=== PATIENT | male | born 1950 | race Asian ===

== ENCOUNTER 2020-01-15 08:49 | Observation (INO) | payer MEDICARE, OTHER ==
[~2020-01-15] VITALS: Ht 177.8 cm; Wt 75.7 kg
--- NOTE | 2020-01-15 09:02 | NUR ---
PT CAME IN [place] "LEFT SIDE WEAKNESS. THATS STARTED WHEN I WOKE UP. ALSO I FEEL DIZZY AND CONFUSED". LAST KNOW WELL TIME WAS LAST NIGHT BEFORE BEDTIME. PT DENIES STROKE HISTORY. EKG COMPELTE. 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
[2020-01-15] MEDS ORDERED: SODIUM CHLORIDE FLUSH 10ML SYR IVF ONE (09:30)
[2020-01-15] MEDS ORDERED: OMNIPAQUE 350 MG/ML, 75ML BOTTLE ONE (09:44)
--- NOTE | 2020-01-15 09:54 | NUR ---
PT RESTING IN [facility]. URINAL PROVIDED.
[2020-01-15 10:01] LABS: BASOPHILS # (AUTO) 0.02 x10^3/uL (0-0.1); BASOPHILS % (AUTO) 0 % (0-1); EOSINOPHILS # (AUTO) 0.03 x10^3/uL (0-0.4); EOSINOPHILS % (AUTO) 1 % (1-7); LYMPHOCYTES # (AUTO) 0.88 x10^3/uL (1-3.4); LYMPHOCYTES % (AUTO) 18 % (22-44); MD NO; MEAN CORPUSCULAR HEMOGLOBIN 32.1 pg (27.5-34.5); MEAN CORPUSCULAR HGB CONC 33.4 g/dL (33.2-36.2); MEAN PLATELET VOLUME 6.3 fL (7.4-10.4); MONOCYTES # (AUTO) 0.52 x10^3/uL (0.2-0.8); MONOCYTES % (AUTO) 11 % (2-9); NEUTROPHILS # (AUTO) 3.52 x10^3/uL (1.8-6.8); NEUTROPHILS % (AUTO) 71 % (42-75); PLATELET COUNT 220 x10^3/uL (130-400); RED BLOOD COUNT 4.85 x10^6/uL (4.38-5.82); RED CELL DISTRIBUTION WIDTH 13.8 % (9.4-14.8)
[2020-01-15 10:02] LABS: ALANINE AMINOTRANSFERASE 23 U/L (12-78); ALBUMIN 3.1 g/dL (3.4-5.0); ANION GAP 7 mmol/L (5-15); CALCIUM 7.8 mg/dL (8.5-10.1); CHLORIDE 98 mmol/L (98-107)
[2020-01-15 10:03] LABS: INTERNATIONAL NORMALIZED RATIO 0.98 (0.93-1.1); PROTHROMBIN TIME 10.4 Seconds (9.6-11.5)
[2020-01-15 10:07] LABS: ALKALINE PHOSPHATASE 61 U/L (45-117); BILIRUBIN,TOTAL 0.6 mg/dL (0.2-1.0); TOTAL PROTEIN 6.1 g/dL (6.4-8.2); TROPONIN I < 0.015 ng/mL (0.000-0.045)
[2020-01-15 10:56] LABS: MICROSCOPIC NOT IND
[2020-01-15 10:59] LABS: CULTURE INDICATED? NO
[2020-01-15] MEDS: INSULIN LISPRO 100 UNITS/ML, PEN SQ-INSULIN SCH ×3 (11:00→20:36)
[2020-01-15] MEDS ORDERED: ENOXAPARIN 40 MG/0.4 ML SQ SCH (11:00)
[2020-01-15] MEDS ORDERED: ACETAMINOPHEN 325 MG TABLET PO PRN (11:00)
[2020-01-15 11:21] LABS: OSMOLALITY,URINE 384 mOsm/kg (500-850)
[2020-01-15 11:39] VITALS: BP 154/98
[2020-01-15] MEDS ORDERED: ASPI-496 PO (11:56)
[2020-01-15] MEDS ORDERED: SIMV20TA19 PO (11:56)
[2020-01-15] MEDS ORDERED: SITA1TAB5 PO (11:56)
[2020-01-15] MEDS ORDERED: MELO15TA24 PO (11:58)
[2020-01-15] MEDS ORDERED: TAMS-11 PO (11:58)
[2020-01-15 15:43] VITALS: BP 147/88
[2020-01-15] MEDS ORDERED: GADOTERATE 7.5 MMOL/15 ML SYR ONE (18:07)
[2020-01-15 19:15] VITALS: BP 137/84
[2020-01-15] MEDS: SIMVASTATIN 40 MG TABLET PO SCH (20:36)
[2020-01-16 00:51] VITALS: BP 156/91
[2020-01-16 06:54] LABS: BASOPHILS # (AUTO) 0.02 x10^3/uL (0-0.1); BASOPHILS % (AUTO) 0 % (0-1); EOSINOPHILS # (AUTO) 0.09 x10^3/uL (0-0.4); EOSINOPHILS % (AUTO) 2 % (1-7); LYMPHOCYTES # (AUTO) 1.26 x10^3/uL (1-3.4); LYMPHOCYTES % (AUTO) 22 % (22-44); MD NO; MEAN CORPUSCULAR HEMOGLOBIN 31.6 pg (27.5-34.5); MEAN CORPUSCULAR HGB CONC 33.4 g/dL (33.2-36.2); MEAN CORPUSCULAR VOLUME 94.5 fL (81-97); MEAN PLATELET VOLUME 6.6 fL (7.4-10.4); MONOCYTES % (AUTO) 9 % (2-9); NEUTROPHILS # (AUTO) 3.89 x10^3/uL (1.8-6.8); NEUTROPHILS % (AUTO) 68 % (42-75); PLATELET COUNT 215 x10^3/uL (130-400); RED BLOOD COUNT 5.39 x10^6/uL (4.38-5.82); RED CELL DISTRIBUTION WIDTH 13.7 % (9.4-14.8)
[2020-01-16 07:03] LABS: ALBUMIN 3.5 g/dL (3.4-5.0); ANION GAP 6 mmol/L (5-15); CALCIUM 8.6 mg/dL (8.5-10.1); CHLORIDE 101 mmol/L (98-107)
[2020-01-16 07:08] LABS: ALANINE AMINOTRANSFERASE 25 U/L (12-78); ALKALINE PHOSPHATASE 63 U/L (45-117); CREATININE 0.87 mg/dL (0.7-1.3); TOTAL PROTEIN 6.8 g/dL (6.4-8.2)
[2020-01-16 07:47] VITALS: BP 126/89
[2020-01-16] MEDS: CLOPIDOGREL 75 MG TABLET PO SCH (08:01)
[2020-01-16] MEDS: INSULIN LISPRO 100 UNITS/ML, PEN SQ-INSULIN SCH ×4 (08:02→20:16)
[2020-01-16] MEDS: ASPIRIN 81 MG TABLET EC PO SCH (08:02)
[2020-01-16] MEDS ORDERED: ASPIRIN 325 MG TABLET EC PO SCH (09:00)
[2020-01-16 12:21] VITALS: BP 140/86
[2020-01-16] MEDS ORDERED: BISACODYL 10 MG SUPP ONE (14:40)
[2020-01-16] MEDS ORDERED: BISACODYL 10 MG SUPP PR PRN (15:00)
[2020-01-16] MEDS ORDERED: SENNA/DOCUSATE TABLET PO PRN (15:00)
[2020-01-16] MEDS: NS + 20MEQ KCL 1,000 ML IV SCH (17:35)
[2020-01-16 19:55] VITALS: BP 140/79
[2020-01-16] MEDS: SIMVASTATIN 40 MG TABLET PO SCH (20:15)
[2020-01-17 00:26] VITALS: BP 162/91
[2020-01-17] MEDS: NS + 20MEQ KCL 1,000 ML IV SCH (03:23)
[2020-01-17 06:18] LABS: BASOPHILS # (AUTO) 0.02 x10^3/uL (0-0.1); BASOPHILS % (AUTO) 0 % (0-1); EOSINOPHILS # (AUTO) 0.14 x10^3/uL (0-0.4); EOSINOPHILS % (AUTO) 2 % (1-7); LYMPHOCYTES # (AUTO) 1.58 x10^3/uL (1-3.4); LYMPHOCYTES % (AUTO) 24 % (22-44); MD NO; MEAN CORPUSCULAR HEMOGLOBIN 32.1 pg (27.5-34.5); MEAN CORPUSCULAR HGB CONC 33.6 g/dL (33.2-36.2); MEAN CORPUSCULAR VOLUME 95.5 fL (81-97); MEAN PLATELET VOLUME 6.8 fL (7.4-10.4); MONOCYTES # (AUTO) 0.56 x10^3/uL (0.2-0.8); MONOCYTES % (AUTO) 9 % (2-9); NEUTROPHILS # (AUTO) 4.27 x10^3/uL (1.8-6.8); NEUTROPHILS % (AUTO) 65 % (42-75); PLATELET COUNT 205 x10^3/uL (130-400); RED BLOOD COUNT 5.09 x10^6/uL (4.38-5.82); RED CELL DISTRIBUTION WIDTH 13.9 % (9.4-14.8)
[2020-01-17 06:37] LABS: ANION GAP 5 mmol/L (5-15); CHLORIDE 104 mmol/L (98-107); CREATININE 0.87 mg/dL (0.7-1.3)
[2020-01-17 07:00] VITALS: BP 143/92
[2020-01-17] MEDS: INSULIN LISPRO 100 UNITS/ML, PEN SQ-INSULIN SCH ×2 (07:06→11:11)
[2020-01-17] MEDS: ASPIRIN 81 MG TABLET EC PO SCH (08:41)
[2020-01-17] MEDS: CLOPIDOGREL 75 MG TABLET PO SCH (08:41)
[2020-01-17] MEDS ORDERED: SIMV20TA19 PO (10:30)
== END 2020-01-17 13:00 | disposition home or self-care (01) ==
LOC: ED 10:17 → EDIP 10:21 → INTOOBSV 10:21 → 4WST 11:10
PROVIDERS: ADMIT Internal Medicine; ATTEND Hospitalist
DX: R26.81 Unsteadiness on feet (principal); E87.1 Hypo-osmolality and hyponatremia; R29.898 Other symptoms and signs involving the musculoskeletal system; E78.5 Hyperlipidemia, unspecified; E11.51 Type 2 diabetes mellitus with diabetic peripheral angiopathy without gangrene; I63.9 Cerebral infarction, unspecified; N40.0 Benign prostatic hyperplasia without lower urinary tract symptoms; Z79.82 Long term (current) use of aspirin; Z88.0 Allergy status to penicillin; Z79.899 Other long term (current) drug therapy
CPT/HCPCS: 36415; 70450; 70496; 70498; 70553; 71045; 80048; 80053; 81003; 82962; 83036; 83930; 83935; 84300; 84443; 84484; 85025; 85610; 85730; 93005; 93306; 93356; 96372; 97161; 97166; 99285; A9575; G0378; J1650; J1815; J3480; Q9967

== ENCOUNTER 2020-01-20 09:08 | Observation (INO) | payer MEDICARE ==
[~2020-01-20] VITALS: Ht 180.3 cm; Wt 75.3 kg
[~2020-01-20 09:08] MED LIST: ASPI-496 PO; MELO15TA24 PO; SIMV20TA19 PO; SITA1TAB5 PO; TAMS-11 PO
--- NOTE | 2020-01-20 09:33 | NUR ---
PT TO ROOM 34 PER ANKITA. PT WAS DISCHARGED FROM [facility] ON 01/15/20, FOR DX OF TIA. PT HAS BEEN OUT IN THE PUBLIC SINCE BEING HOME, NOW WORRIED THAT HE MAY HAVE COVID-19 DUE TO CHILLS AND WEAKNESS. PT HAS REPRODUCEABLE CHEST PAIN ON LEFT SIDE, SINCE HE LEFT THE HOSPITAL. SISTER ALSO FEARS THAT PATIENT HAS BEEN WEAKER SINCE COMING HOME. PT PLACED IN GOWN, MONITORS ATTACHED, CALL LIGHT GIVEN AND WARM BLANKETS APPLIED.
--- NOTE | 2020-01-20 10:00 | NUR ---
MD IN TO ASSESS PATIENT. ORDERS RECEIVED. PT REMAINS STABLE.
[2020-01-20] MEDS ORDERED: NITROGLYCERIN SINGLE TAB 0.4 MG SL PRN (10:30)
[2020-01-20] MEDS ORDERED: ASPIRIN 81 MG TABLET CHEW ONE (10:35)
[2020-01-20] MEDS ORDERED: ASPIRIN 81 MG TABLET CHEW PO ONE (11:00)
--- NOTE | 2020-01-20 11:07 | NUR ---
IV PLACED WITH LAB DRAW. PT GIVEN PO MEDS WITHOUT DIFF. PT HAS CELL PHONE NEXT TO BED CHARGING. PT GIVEN GLASS OF WATER. PT REMAINS STABLE. AWAITING TEST RESULT.
[2020-01-20 11:10] LABS: BASOPHILS # (AUTO) 0.03 x10^3/uL (0-0.1); BASOPHILS % (AUTO) 1 % (0-1); EOSINOPHILS # (AUTO) 0.06 x10^3/uL (0-0.4); EOSINOPHILS % (AUTO) 1 % (1-7); LYMPHOCYTES # (AUTO) 1.33 x10^3/uL (1-3.4); LYMPHOCYTES % (AUTO) 20 % (22-44); MD NO; MEAN CORPUSCULAR HEMOGLOBIN 32.2 pg (27.5-34.5); MEAN CORPUSCULAR VOLUME 94.6 fL (81-97); MEAN PLATELET VOLUME 6.8 fL (7.4-10.4); MONOCYTES # (AUTO) 0.43 x10^3/uL (0.2-0.8); MONOCYTES % (AUTO) 6 % (2-9); NEUTROPHILS % (AUTO) 72 % (42-75); PLATELET COUNT 212 x10^3/uL (130-400); RED BLOOD COUNT 4.99 x10^6/uL (4.38-5.82); RED CELL DISTRIBUTION WIDTH 13.4 % (9.4-14.8)
[2020-01-20 11:21] LABS: ALANINE AMINOTRANSFERASE 28 U/L (12-78); ALBUMIN 3.2 g/dL (3.4-5.0); ANION GAP 5 mmol/L (5-15); CALCIUM 8.2 mg/dL (8.5-10.1); CHLORIDE 99 mmol/L (98-107); CREATININE 0.75 mg/dL (0.7-1.3)
[2020-01-20 11:25] LABS: ALKALINE PHOSPHATASE 65 U/L (45-117); BILIRUBIN,TOTAL 0.8 mg/dL (0.2-1.0); TOTAL PROTEIN 6.5 g/dL (6.4-8.2); TROPONIN I < 0.015 ng/mL (0.000-0.045)
[2020-01-20] MEDS ORDERED: SODIUM CHLORIDE FLUSH 10ML SYR IVF ONE (11:30)
--- NOTE | 2020-01-20 12:25 | NUR ---
LUNCH TRAY ORDERED
--- NOTE | 2020-01-20 12:32 | NUR ---
PT MOVED TO ROOM 35 WITH A HOSPITAL BED DUE TO NO ROOMS AVAILABLE. PT AMBULATED WITH STRONG STEADY GAIT. STOP BY BR WITHOUT DIFF. PT GIVEN FOOD AND A LUNCH TRAY WAS ORDERED. PT IS STABLE. ADMITTING DOCTOR HAS BEEN BY AND PLACED ORDERS.
--- NOTE | 2020-01-20 13:30 | NUR ---
PT RESTING IN BED. FINISHED LUNCH TRAY. PT TALKING ON PHONE, HE CONTINUES TO RUN HIS BUSINESS FROM HOSPITAL BED. WILL CONTINUE TO MONITOR.
--- NOTE | 2020-01-20 14:30 | NUR ---
PT RESTING. CONTINUE TO AWAIT ROOM PLACEMENT. PT IS STABLE. WILL CONTINUE TO MONITOR
--- NOTE | 2020-01-20 15:30 | NUR ---
PT SLEEPING. WILL CONTINUE TO MONITOR.
[2020-01-20 15:43] LABS: TROPONIN I < 0.015 ng/mL (0.000-0.045)
--- NOTE | 2020-01-20 16:42 | NUR ---
PT RESTING. INFORMED PATIENT THAT DINNER TRAY HAS BEEN ORDERED, AND WE WILL CHECK HIS BLOOD SUGAR PRIOR TO EATING. PT STABLE.
[2020-01-20] MEDS ORDERED: HEPARIN 5,000 UNITS/ML, 1ML ONE (17:05)
[2020-01-20] MEDS ORDERED: INSULIN SINGLE DOSE, ER ONE (17:06)
[2020-01-20] MEDS: INSULIN LISPRO 100 UNITS/ML, PEN SQ-INSULIN SCH ×2 (17:10→21:00)
[2020-01-20] MEDS: HEPARIN 5,000 UNITS/ML, 1ML SQ SCH (17:11)
--- NOTE | 2020-01-20 17:30 | NUR ---
PT EATING DINNER, STABLE, NO COMPLAINTS
[2020-01-20] MEDS: METOPROLOL TARTRATE 25 MG TAB PO SCH (18:00)
--- NOTE | 2020-01-20 18:30 | NUR ---
PT RESTING. PT TALKING ON PHONE, DENIES ANY COMPLAINTS
[2020-01-20 19:14] LABS: MICROSCOPIC NOT IND
[2020-01-20 19:23] LABS: CULTURE INDICATED? NO
--- NOTE | 2020-01-20 19:30 | NUR ---
PT LYING IN BED SIDEWAYS. HELPED PATIENT STRAIGHTEN OUT. PT HAS NO COMPLAINTS AT THIS TIME. WILL CONTINUE TO MONITOR. PT DENIES CHEST PAIN. INFORMS RN THAT HE JUST HAD A NEW GRANDBABY, AND REALLY NEEDS TO KNOW IF HE HAS COVID. RN EXPLAINED THAT HE HAS BEEN TESTED, BUT IT CAN TAKE 2 DAYS OR MORE FOR THE RESULTS. RN AND PATIENT HAD LONG DISCUSSION ABOUT WHAT HE WILL DO IF HE IS POSITIVE, AND WHAT HE WILL DO IF HE IS NEGATIVE.
[2020-01-20 19:46] LABS: OSMOLALITY,URINE 464 mOsm/kg (500-850)
[2020-01-20 19:49] LABS: SODIUM,URINE RANDOM 75 mmol/L
[2020-01-20] MEDS: SIMVASTATIN 40 MG TABLET PO SCH (20:33)
[2020-01-20] MEDS: TAMSULOSIN 0.4 MG CAP.ER.24H PO SCH (20:33)
--- NOTE | 2020-01-20 20:46 | NUR ---
EVENING MEDICATIONS GIVEN TO PATIENT WITHOUT DIFF. MEDS DISCUSSED WITH PATIENT PRIOR TO ADMINISTRATION. PT INFORMED THAT HE WILL HAVE ONE MORE BLOOD SUGAR CHECK BEFORE BED. LIGHTS DIMMED, AND PATIENT'S CARE NEEDS MET. WILL CONTINUE TO MONITOR.
--- NOTE | 2020-01-20 21:13 | NUR ---
REPORT OF PT FROM RN AMARILIS AND ASSUMING CARE OF PT AT THIS TIME.
--- NOTE | 2020-01-20 22:33 | NUR ---
REPORT OF PT TO RN PETROS. ALL QUESTIONS ANSWERED. PT VSS AND UPDATED IN EMR. FSBS 114 AND INSULIN NOT INDICATED AT THIS TIME PER SLIDING SCALE PROTOCOL. PT AWARE OF ROOM ASSIGNMENT. TECH PAGED FOR TRANSPORT OF PT TO FLOOR AT THIS TIME.
[2020-01-20 22:42] LABS: TROPONIN I < 0.015 ng/mL (0.000-0.045)
--- NOTE | 2020-01-20 23:10 | NUR ---
this tech transported pt
[2020-01-20 23:32] VITALS: BP 135/72
[2020-01-21] MEDS: HEPARIN 5,000 UNITS/ML, 1ML SQ SCH ×3 (01:25→16:46)
[2020-01-21 01:26] VITALS: BP 119/70
[2020-01-21 05:35] LABS: MEAN CORPUSCULAR HEMOGLOBIN 31.8 pg (27.5-34.5); MEAN CORPUSCULAR HGB CONC 33.4 g/dL (33.2-36.2); MEAN CORPUSCULAR VOLUME 95.3 fL (81-97); PLATELET COUNT 186 x10^3/uL (130-400); RED BLOOD COUNT 5.09 x10^6/uL (4.38-5.82); RED CELL DISTRIBUTION WIDTH 13.7 % (9.4-14.8)
[2020-01-21 05:39] LABS: ANION GAP 8 mmol/L (5-15); CALCIUM 8.4 mg/dL (8.5-10.1); CHLORIDE 101 mmol/L (98-107)
[2020-01-21] MEDS: METOPROLOL TARTRATE 25 MG TAB PO SCH ×2 (05:52→16:48)
[2020-01-21 06:08] LABS: MD YES
[2020-01-21 06:11] LABS: BASOS#(MANUAL) 0.06 x10^3/uL (0-0.1); BASOS% (MANUAL) 1 % (0-1); EOS#(MANUAL) 0.12 x10^3/uL (0.0-0.4); EOS% (MANUAL) 2 % (1-7); LYMPH#(MANUAL) 1.77 x10^3/uL (1-3.4); LYMPHS% (MANUAL) 30 % (22-44); MONOS% (MANUAL) 5 % (2-9); SEG#(MANUAL) 3.66 x10^3/uL (1.8-6.8); SEGS% (MANUAL) 62 % (42-75)
[2020-01-21 06:12] LABS: <PLATELET ESTIMATE> ADEQUATE; <PLT MORPHOLOGY> NORMAL PLT MORPH; <RBC MORPHOLOGY> NORMAL
[2020-01-21 07:03] VITALS: BP 135/80
[2020-01-21] MEDS: INSULIN LISPRO 100 UNITS/ML, PEN SQ-INSULIN SCH ×4 (07:25→20:12)
[2020-01-21] MEDS: ASPIRIN 81 MG TABLET EC PO SCH (09:17)
[2020-01-21] MEDS: TAMSULOSIN 0.4 MG CAP.ER.24H PO SCH (09:17)
[2020-01-21 13:37] VITALS: BP 139/68
[2020-01-21 19:34] VITALS: BP 133/80
[2020-01-21] MEDS: SIMVASTATIN 40 MG TABLET PO SCH (20:12)
[2020-01-22] MEDS: HEPARIN 5,000 UNITS/ML, 1ML SQ SCH ×2 (00:33→09:44)
[2020-01-22 00:35] VITALS: BP 119/73
[2020-01-22] MEDS: METOPROLOL TARTRATE 25 MG TAB PO SCH (05:10)
[2020-01-22 08:16] VITALS: BP 139/84
[2020-01-22] MEDS: ASPIRIN 81 MG TABLET EC PO SCH (09:26)
[2020-01-22] MEDS: INSULIN LISPRO 100 UNITS/ML, PEN SQ-INSULIN SCH ×2 (09:43→12:41)
[2020-01-22 14:04] VITALS: BP 118/72
== END 2020-01-22 14:15 | disposition home or self-care (01) ==
LOC: ED 09:25 → INTOOBSV 14:46 → EDIP 14:46 → 4NW 23:05
PROVIDERS: ADMIT Internal Medicine; ATTEND Internal Medicine
DX: R07.89 Other chest pain (principal); I10 Essential (primary) hypertension; E11.9 Type 2 diabetes mellitus without complications; E78.5 Hyperlipidemia, unspecified; E87.1 Hypo-osmolality and hyponatremia; E87.6 Hypokalemia; N40.0 Benign prostatic hyperplasia without lower urinary tract symptoms; G45.9 Transient cerebral ischemic attack, unspecified; Z79.82 Long term (current) use of aspirin; Z79.899 Other long term (current) drug therapy; Z86.73 Personal history of transient ischemic attack (TIA), and cerebral infarction without residual deficits; Z88.0 Allergy status to penicillin; Z79.1 Long term (current) use of non-steroidal anti-inflammatories (NSAID); Z03.818 Encounter for observation for suspected exposure to other biological agents ruled out
CPT/HCPCS: 36415; 71045; 80048; 80053; 81003; 82962; 83605; 83930; 83935; 84300; 84443; 84484; 85025; 93005; 96372; 99285; G0378; J1644; J1815; U0001

== ENCOUNTER 2020-03-10 12:37 | Outpatient (CLI) | payer MEDICARE ==
[~2020-03-10 12:37] MED LIST changes: +REGADENOSON 0.4 MG/5 ML SYRINGE ONE
== END 2020-03-10 23:59 | disposition home or self-care (01) ==
LOC: CFH 12:37
PROVIDERS: ATTEND Family Medicine
DX: R07.9 Chest pain, unspecified (principal); E78.49 Other hyperlipidemia; E11.40 Type 2 diabetes mellitus with diabetic neuropathy, unspecified
CPT/HCPCS: 78452; 93017; A9502; J2785